=== PATIENT | female | born 1960 | race Two or more races ===

== ENCOUNTER → 2016-11-08 | Outpatient (CLI) | payer BC ==
--- NOTE | 2016-11-08 13:59 | Diagnostic Imaging Report ---
Indication: ABD DIST Technique: Patient ingested effervescent granules, thickened and liquid barium, and rapid sequence spot images and limited overhead images obtained Total fluoroscopy time 1.4 minutes. Total dose area product 523 dGycm2 Comparison: None Findings: Exam is limited, due to his limited ability of patient to tolerate oral contrast ingestion. Normal esophageal distensibility and motility. No significant hypopharyngeal retention of contrast. Small sliding-type hiatal hernia is noted on the prone images. No gastroesophageal reflux was observed under fluoroscopy with provocative maneuvers. Stomach is grossly unremarkable Impression: Limited exam Small sliding-type hiatal hernia Otherwise unremarkable. No significant obstructing lesion or dysmotility demonstrated.
== END | disposition home or self-care (01) ==
LOC: RAD 09:09
DX: K21.9 Gastro-esophageal reflux disease without esophagitis (principal); K44.9 Diaphragmatic hernia without obstruction or gangrene
CPT/HCPCS: 74220